=== PATIENT | female | born 1985 | race Asian ===

== ENCOUNTER 2019-07-20 21:39 | Observation (INO) | payer MEDICAID ==
[~2019-07-20] VITALS: Ht 160 cm; Wt 63.5 kg
[2019-07-20] MEDS ORDERED: LR 1,000 ML IV SCH (22:33)
[2019-07-20] MEDS ORDERED: MORPHINE SULFATE 10 MG/ML VIAL IM PRN (22:45)
== END 2019-07-21 02:57 | disposition home or self-care (01) ==
LOC: SPU 21:39
PROVIDERS: ADMIT Obstetrics & Gynecology; ATTEND Obstetrics & Gynecology
DX: O62.9 Abnormality of forces of labor, unspecified (principal); O46.93 Antepartum hemorrhage, unspecified, third trimester; Z3A.37 37 weeks gestation of pregnancy
CPT/HCPCS: 81002; 96372; G0378 ×2; J2270

== ENCOUNTER 2019-07-21 20:43 | Inpatient (IN) | payer SELFPAY ==
[~2019-07-21] VITALS: Ht 160 cm; Wt 63.5 kg
[2019-07-21] MEDS: LR 1,000 ML IV SCH (20:46)
[2019-07-21] MEDS ORDERED: OXYTOCIN/0.9 % SODIUM CHLORIDE 1,000 ML IV SCH (20:46)
[2019-07-21] MEDS ORDERED: LR 500 ML IV ONE (20:46)
[2019-07-21] MEDS ORDERED: LR 1,000 ML IV ONE (20:46)
[2019-07-21] MEDS ORDERED: TERBUTALINE SULFATE 1 MG/ML VIAL SUBCUT ONE (21:00)
[2019-07-21 21:22] LABS: BASOPHILS % (AUTO) 0.2 % (0.0-2.0); EOSINOPHILS % (AUTO) 0.3 % (0.0-4.0); HEMATOCRIT 37.1 % (36-48); HEMOGLOBIN 12.1 g/dL (12.0-16.0); LYMPHOCYTES # (AUTO) 2.1 K/uL (1.0-5.5); LYMPHOCYTES % (AUTO) 17.6 % (20.5-51.5); MEAN CORPUSCULAR HEMOGLOBIN 29 pg (27-31); MEAN CORPUSCULAR HGB CONC 33 % (32-36); MEAN CORPUSCULAR VOLUME 88 fL (79.0-98.0); MONOCYTES # (AUTO) 0.6 K/uL (0.0-1.0); MONOCYTES % (AUTO) 5.5 % (1.7-9.3); NEUTROPHILS % (AUTO) 76.4 % (40.0-70.0); PLATELET COUNT (AUTO) 149 K/uL (130-430); RED BLOOD CELL COUNT(AUTO) 4.21 MIL/uL (4.2-6.2); RED CELL DISTRIBUTION WIDTH 13.9 % (9.0-15.0); WHITE BLOOD COUNT (AUTO) 11.8 K/uL (4.8-10.8)
[2019-07-21] MEDS ORDERED: fentaNYL CITRATE/PF 100 MCG/2 ML AMP ONE (22:27)
[2019-07-21] MEDS ORDERED: ROPIVACAINE HCL/PF 0.2% 200 ML ONE (22:28)
[2019-07-22 00:14] VITALS: BP_SYST 124
[2019-07-22] MEDS: LR 1,000 ML IV SCH (04:16)
[2019-07-22] MEDS ORDERED: OXYTOCIN/0.9 % SODIUM CHLORIDE 1,000 ML IV ONE (07:28)
[2019-07-22] MEDS ORDERED: METHYLERGONOVINE MALEATE 0.2 MG TABLET PO PRN (07:30)
[2019-07-22] MEDS ORDERED: DOCUSATE SODIUM 100 MG CAPSULE PO PRN (07:30)
[2019-07-22] MEDS ORDERED: HYDROCORTISONE 0.5%, 28.35 GM TOPICAL CREAM TP PRN (07:30)
[2019-07-22] MEDS ORDERED: DERMOPLAST SPRAY TP PRN (07:30)
[2019-07-22] MEDS ORDERED: LANOLIN 7 GM OINT. TP PRN (07:30)
[2019-07-22] MEDS ORDERED: SENNOSIDES/DOCUSATE SODIUM 1 TAB TABLET(SENOKOT-S) PO PRN (07:30)
[2019-07-22] MEDS ORDERED: OXYCODONE/ACETAMINOPHEN 5-325 TABLET PO PRN ×2 (07:30)
[2019-07-22] MEDS ORDERED: ANUSOL 1 EA SUPP.RECT (PREPARATION H) RC PRN (07:30)
[2019-07-22] MEDS ORDERED: WITCH HAZEL LEAF 1 MED.PAD MED.PAD TP PRN (07:30)
[2019-07-22] MEDS: IBUPROFEN 800 MG TABLET PO PRN ×2 (12:27→18:09)
[2019-07-22] MEDS ORDERED: TEMAZEPAM 15 MG CAPSULE PO PRN (21:00)
[2019-07-23] MEDS: IBUPROFEN 800 MG TABLET PO PRN ×3 (00:11→12:17)
[2019-07-23 07:07] LABS: HEMATOCRIT 29.2 % (36-48); HEMOGLOBIN 9.5 g/dL (12.0-16.0)
== END 2019-07-23 13:15 | disposition home or self-care (01) | DRG 807 ==
LOC: SPU 20:43
PROVIDERS: ADMIT Obstetrics & Gynecology; ATTEND Obstetrics & Gynecology
PROC: 10D07Z6 Extraction of Products of Conception, Vacuum, Via Natural or Artificial Opening (ICD-10-PCS; principal; 2019-07-22)
PROC: 3E0R3BZ Introduction of Anesthetic Agent into Spinal Canal, Percutaneous Approach (ICD-10-PCS; 2019-07-22)
PROC: 00HU33Z Insertion of Infusion Device into Spinal Canal, Percutaneous Approach (ICD-10-PCS; 2019-07-22)
PROC: 0W8NXZZ Division of Female Perineum, External Approach (ICD-10-PCS; 2019-07-22)
DX: O77.0 Labor and delivery complicated by meconium in amniotic fluid (principal); Z37.0 Single live birth; O69.1XX0 Labor and delivery complicated by cord around neck, with compression, not applicable or unspecified; Z3A.37 37 weeks gestation of pregnancy
CPT/HCPCS: 36415; 85018-TC; 85025; 86592; 86762; 86886; 86900; 86901; 87340; 87536; J2590; J3010